=== PATIENT | female | born 1985 | race Caucasian/White ===

== ENCOUNTER 2018-06-07 08:13 | Outpatient (CLI) | payer OTHER ==
--- NOTE | 2018-06-07 20:41 | Ultrasound Report ---
FINAL REPORT EXAM: US PELVIC COMPLETE HISTORY: PELVIC PAIN . Specifically in the right lower quadrant. LMP 05/07/2018 TECHNIQUE: Ultrasound of the pelvis using transabdominal and transvaginal imaging PRIORS: None. FINDINGS: Uterus: Uterus is enlarged in size and heterogeneous in echogenicity without focal fibroid formation. The uterus measures 8.9 x 3.7 x 6.7 cm in size. Endometrial stripe: Normal and uniform in thickness measuring 11.6 mm. Ovaries: Both ovaries appear normal in size and echogenicity with normal blood flow bilaterally. The right ovary measures 3.9 x 2.6 x 2.6 cm and the left ovary measures 3.0 x 1.7 x 2.7 cm in size. There is a 2.1 x 2.0 x 1.9 cm complex cyst in the right ovary. This cyst contains an echogenic non mobile non shadowing focus measuring 5.4 x 2.9 mm. Short-term follow-up ultrasound is warranted in 6 weeks. This persists, MRI would be indicated. Other: There is no evidence for solid adnexal mass or free fluid in the cul-de-sac seen. IMPRESSION: 1. Cyst in the right ovary containing an echogenic non mobile non shadowing focus along 1 wall. Short-term follow-up ultrasound in 6 weeks is warranted. If this persists, MRI would be needed. 2. Enlarged heterogeneous uterus without evidence for fibroid formation
--- NOTE | 2018-06-07 20:49 | Ultrasound Report ---
FINAL REPORT EXAM: US TRANSVAGINAL HISTORY: PELVIC PAIN . Specifically in the right lower quadrant. LMP 05/07/2018 TECHNIQUE: Ultrasound of the pelvis using transabdominal and transvaginal imaging PRIORS: Transabdominal imaging from the same date and time.. FINDINGS: Uterus: Uterus is enlarged in size and heterogeneous in echogenicity without focal fibroid formation. The uterus measures 8.9 x 3.7 x 6.7 cm in size. Endometrial stripe: Normal and uniform in thickness measuring 11.6 mm. Ovaries: Both ovaries appear normal in size and echogenicity with normal blood flow bilaterally. The right ovary measures 3.9 x 2.6 x 2.6 cm and the left ovary measures 3.0 x 1.7 x 2.7 cm in size. There is a 2.1 x 2.0 x 1.9 cm complex cyst in the right ovary. This cyst contains an echogenic non mobile non shadowing focus measuring 5.4 x 2.9 mm. Short-term follow-up ultrasound is warranted in 6 weeks. This persists, MRI would be indicated. Other: There is no evidence for solid adnexal mass or free fluid in the cul-de-sac seen. IMPRESSION: 1. Cyst in the right ovary containing an echogenic non mobile non shadowing focus along 1 wall. Short-term follow-up ultrasound in 6 weeks is warranted. If this persists, MRI would be needed. 2. Enlarged heterogeneous uterus without evidence for fibroid formation
== END 2018-06-07 08:14 | disposition home or self-care (01) ==
LOC: US 08:13
PROVIDERS: ATTEND General Practice
DX: N83.201 Unspecified ovarian cyst, right side (principal)
CPT/HCPCS: 76830; 76856

== ENCOUNTER 2018-07-19 08:35 | Outpatient (CLI) | payer OTHER ==
--- NOTE | 2018-07-19 09:34 | Ultrasound Report ---
ULTRASOUND PELVIC COMPLETE ULTRASOUND TRANSVAGINAL HISTORY: Ovarian cyst. COMPARISON: 06/07/18. TECHNIQUE: Transabdominal and transvaginal ultrasound with color doppler interrogation. FINDINGS: Uterus: The uterus is anteverted. The uterus measures 7.9 x 3.9 x 4.9 cm. A 1 cm hypoechoic submucosal fibroid is noted in the posterior wall of the uterus. Normal cervix. Endometrium: 8 mm. No abnormality. Right ovary: 3.7 x 1.9 x 2.4 cm. The previously described right ovarian cyst has decreased in size from 2.1 cm to 1.3 cm in greatest dimension. A mild degree of internal debris remains. No new right ovarian lesion. Left ovary: 4.3 x 1.9 x 3.0 cm. There is a new complex area in the left ovary measuring 2.6 x 2.0 cm. This has the appearance of a complex cyst or recently ruptured cyst. No pelvic fluid or mass is identified. Normal color doppler interrogation. IMPRESSION: Decreased size of the right ovarian cyst as described. New slightly complex area in the left ovary which most resembles a recently ruptured cyst. Small uterine fibroid.
== END 2018-07-19 08:36 | disposition home or self-care (01) ==
LOC: US 08:35
PROVIDERS: ATTEND General Practice
DX: D25.9 Leiomyoma of uterus, unspecified (principal); N83.201 Unspecified ovarian cyst, right side
CPT/HCPCS: 76830; 76856

== ENCOUNTER 2022-02-09 10:36 | Emergency (ER) | payer OTHER ==
[2022-02-09 11:14] VITALS: BP 127/70
--- NOTE | 2022-02-09 14:26 | Emergency Department Report ---
Suture/Staple Removal - [facility] Chief Complaint: Laceration/Recheck/Suture Stated Complaint: STAPLE REMOVAL Time Seen by Provider: 02/09/22 14:23 When Sutures or Jc Placed: 8-10 Days Ago Wound Location: Occipital scalp ED Review of Systems ROS: Stated complaint: STAPLE REMOVAL Other details as noted in HPI Comment: All other systems reviewed and negative Constitutional: denies: chills, fever Eyes: denies: eye pain, eye discharge, vision change ENT: denies: ear pain, throat pain Respiratory: denies: cough, shortness of breath, wheezing Cardiovascular: denies: chest pain, palpitations Endocrine: no symptoms reported Gastrointestinal: denies: abdominal pain, nausea, diarrhea Genitourinary: denies: urgency, dysuria, discharge Musculoskeletal: denies: back pain, joint swelling, arthralgia Skin: denies: rash, lesions Neurological: denies: headache, weakness, paresthesias Psychiatric: denies: anxiety, depression Hematological/Lymphatic: denies: easy bleeding, easy bruising ED Past Medical Hx - Past Medical History Additional medical history: fibroids - Social History Smoking Status: Never Smoker Suture Removal Exam - Exam General: Vital signs noted. No distress. Alert and acting appropriately. Wound: No Pathologic Erythema, No Tenderness, No Drainage, No Pus, No Wound Dehiscence Other Systems: All other systems reviewed and are unremarkable. ED Course Vital Signs 02/09/22 11:12 Temperature 98.7 F Pulse Rate 77 Respiratory 18 Rate Blood Pressure 127/70 [Right] O2 Sat by Pulse 100 Oximetry - Reevaluation(s) Reevaluation #1: 02/09/22 14:26 Patient is speaking in full sentences with no signs of distress noted. ED Recheck MDM - Medical Decision Making This is a 36-year-old female that presents with stable removal. She is stable and was examined by me. Total of 6 jc has been removed and patient tolerated well. No signs of wound dehiscence, drainage, or cellulitis. Patient was referred to Follow-up with a primary care doctor in 3-5 days or if symptoms worsen and continue return to emergency room as soon as possible. At time of discharge, the patient does not seem toxic or ill in appearance. No acute signs of distress noted. Patient agrees to discharge treatment plan of care. No further questions noted by the patient. Critical care attestation.: If time is entered above; I have spent that time in minutes in the direct care of this critically ill patient, excluding procedure time. ED Disposition Clinical Impression: Encounter for staple removal Disposition: 01 HOME / SELF CARE / HOMELESS Is pt being admited?: No Does the pt Need Aspirin: No Condition: Stable Additional Instructions: Follow-up with a primary care doctor in 3-5 days or if symptoms worsen and continue return to emergency room as soon as possible. Referrals: PRIMARY CAREMD [Referring] - 3-5 Days ARASH ERICKSON MD [Staff Physician] - 3-5 Days Time of Disposition: 14:27
== END 2022-02-09 15:00 | disposition home or self-care (01) ==
LOC: ED 10:36
DX: Z48.02 Encounter for removal of sutures (principal)
CPT/HCPCS: 99282